=== PATIENT | male | born 1950 | race African-American/Black ===

== ENCOUNTER 2020-11-03 12:32 | Emergency (ER) | payer MEDICARE, MEDICAID ==
[~2020-11-03] VITALS: Ht 182.9 cm; Wt 95.3 kg
[2020-11-03] MEDS ORDERED: cloNIDine HCL 0.1 MG TAB ONE (12:49)
[2020-11-03] MEDS ORDERED: cloNIDine HCL 0.1 MG TAB PO ONE (13:00)
[2020-11-03 13:52] LABS: Basophils # (auto) 0 10 ^3/uL (0-0.2); Basophils % (auto) 0.8 % (0.0-2.0); Eosinophils # (auto) 0.1 10 ^3/uL (0-0.8); Eosinophils % (auto) 2.9 % (0.0-7.0); Hematocrit 42.2 % (41.0-53.0); Hemoglobin 14.3 g/dL (13.5-17.5); Lymphocytes # (auto) 1.2 10 ^3/uL (0.4-5.4); Lymphocytes % (auto) 23.1 % (10.0-50.0); Mean Corpuscular Hemoglobin 28.4 pg (28.0-32.0); Mean Corpuscular Volume 83.6 fL (80.0-100.0); Monocytes # (auto) 0.5 10 ^3/uL (0-1.3); Monocytes % (auto) 9.6 % (0.0-12.0); Neutrophils # (auto) 3.2 10 ^3/uL (1.6-8.6); Neutrophils % (auto) 63.6 % (37.0-80.0); Nucleated Red Blood Cells % 0.2 %; Platelet Count (auto) 248 10^3/uL (140-450); Red Blood Cells 5.04 10^6/uL (4.5-5.90); Red Cell Distribution Width 15.9 % (11.8-14.3)
[2020-11-03 14:08] LABS: Albumin 3.5 g/dL (3.4-5.0); Anion Gap 9 (5-15); Blood Urea Nitrogen 15 mg/dL (7-18); Carbon Dioxide 22 mmol/L (21-32); Chloride 108 mmol/L (98-107); Glucose 104 mg/dL (74-106); Potassium 3.7 mmol/L (3.5-5.1); Sodium 139 mmol/L (136-145)
[2020-11-03 14:10] LABS: Alanine Aminotransferase 21 U/L (16-61); Aspartate Aminotransferase 19 U/L (15-37); BUN/Creatinine Ratio 11.9; GFR African American 73 mL/min; GFR Non-African American 60 mL/min
[2020-11-03 14:15] LABS: Alkaline Phosphatase 152 U/L (45-117); Bilirubin, Total 0.3 mg/dL (0.2-1.0); Total Protein 8.9 g/dL (6.4-8.2)
[2020-11-03 14:37] VITALS: BP 171/61
[2020-11-03 14:48] LABS: Urine Bacteria NONE SEEN /hpf (None Seen); Urine Blood Negative /uL (Negative); Urine Mucus FEW (None Seen); Urine Specific Gravity 1.023 (1.001-1.035); Urine WBC <1 /hpf (0 - 3)
== END 2020-11-03 15:27 | disposition home or self-care (01) ==
LOC: ER 12:32
DX: I16.0 Hypertensive urgency (principal); I10 Essential (primary) hypertension; F17.210 Nicotine dependence, cigarettes, uncomplicated; Z88.6 Allergy status to analgesic agent
CPT/HCPCS: 36415; 71046; 80053; 81001; 84484; 85025; 93005